=== PATIENT | male | born 1985 | race Caucasian/White ===

== ENCOUNTER 2016-05-01 12:27 | Emergency (ER) | payer OTHER ==
[2016-05-01 13:21] VITALS: BP 118/84; PULSE 83; RESP 18; TEMP 97.8
--- NOTE | 2016-05-01 14:16 | ED ---
Upper Extremity HPI - General Chief Complaint: Extremity Injury, Upper Stated Complaint: Shoulder Pain Time Seen by Provider: 05/01/16 13:49 Source: patient Mode of arrival: ambulatory Limitations: no limitations - History of Present Illness Initial Comments: Patient is a 30-year-old male presenting to the with chief complaint of right shoulder pain. Patient reports that he fell on the ice approximately 2 weeks ago. Patient reports decreased range of motion in the right shoulder. He states it's difficult to abduct his right arm. He denies any peripheral paresthesias. He states that he is in no injuries of his shoulders before. He states that he does have some numbness that radiates down to the elbow. He reports that only occurs with certain movements. Patient denies fever, chills, chest pain, shortness of breath, peripheral paresthesias, nausea, vomiting, abdominal pain. - Related Data Home Medications Medication Instructions Recorded Confirmed Gabapentin [Neurontin] 800 mg PO TID 12/21/15 05/01/16 Previous Rx's Medication Instructions Recorded Cyclobenzaprine [Flexeril] 10 mg PO TID #15 tab 05/01/16 Ibuprofen [Motrin] 800 mg PO Q8HR PRN #20 tab 05/01/16 Allergies Allergy/AdvReac Type Severity Reaction Status Date / Time Sulfa (Sulfonamide Allergy Unknown Verified 05/01/16 13:21 Antibiotics) tetanus and diphtheria Allergy Unknown Verified 05/01/16 13:21 toxoids Childhood [Tetanus&Diphtheria Toxoid] tetracycline [Tetracycline] Allergy Unknown Verified 05/01/16 13:21 Review of Systems ROS Statement: Those systems with pertinent positive or pertinent negative responses have been documented in the HPI. ROS Other: All systems not noted in ROS Statement are negative. Past Medical History Additional Past Medical History / Comment(s): left pectal muscle missing, pectus cavernosum dextrocardia situs inversus. History of Any Multi-Drug Resistant Organisms: MRSA Date of last positivie culture/infection: 12/21/15 MDRO Source:: Left Knee Past Surgical History: Orthopedic Surgery Additional Past Surgical History / Comment(s): Right wrist tendon surgery. MEDICAL-dextrocardia situs inversis, pectus excavatom, former heroin abuser 6months clean as of today 07/04/14 Past Psychological History: PTSD Smoking Status: Current every day smoker Past Alcohol Use History: Rare Past Drug Use History: None Reported General Exam - General Exam Comments Initial Comments: Patient is a well-appearing 30-year-old male. He does not appear to be in any acute distress. Limitations: no limitations General appearance: alert, in no apparent distress Head exam: Present: atraumatic, normocephalic, normal inspection Eye exam: Present: normal appearance, PERRL, EOMI. Absent: scleral icterus, conjunctival injection, periorbital swelling ENT exam: Present: normal exam, mucous membranes moist Neck exam: Present: normal inspection. Absent: tenderness, meningismus, lymphadenopathy Respiratory exam: Present: normal lung sounds bilaterally. Absent: respiratory distress, wheezes, rales, rhonchi, stridor Cardiovascular Exam: Present: regular rate, normal rhythm, normal heart sounds. Absent: systolic murmur, diastolic murmur, rubs, gallop, clicks GI/Abdominal exam: Present: soft, normal bowel sounds. Absent: distended, tenderness, guarding, rebound, rigid Right Shoulder Exam: Present: normal inspection, tenderness over AC joint (I'll tenderness over the before meals joint.). Absent: full ROM (Patient has limited abduction. Patient has positive Apley scratch test.), tenderness, swelling, abrasion, laceration, ecchymosis, deformity, crepitus, dislocation Upper Arm exam: Present: normal inspection, full ROM Elbow exam: Present: normal inspection, full ROM Forearm Wrist exam: Present: normal inspection, full ROM Hand Wrist exam: Present: normal inspection, full ROM Back exam: Present: normal inspection Neurological exam: Present: alert, oriented X3, CN II-XII intact Psychiatric exam: Present: normal affect, normal mood Skin exam: Present: warm, dry, intact, normal color. Absent: rash Course Vital Signs 05/01/16 13:18 Temperature 97.8 F Pulse Rate 83 Respiratory 18 Rate Blood Pressure 118/84 O2 Sat by Pulse 96 Oximetry Procedures - Orthopedic Splinting/Casting Injury #1 Side: right Upper Extremity Injury Location: shoulder Upper Extremity Immobilizer: sling/shoulder immobilizer Medical Decision Making - Medical Decision Making Patient is a 28-year-old male with 2 weeks of right shoulder pain and decreased range of motion after falling on the ice. X-rays of the shoulder and before meals joints were obtained. Xrays shown to be negative. Patient given Rx for antiinflammatory and muscle relaxer. PAtient understands treatment plan and will comply. Patietn given sling, and referral to orthopedic. REturn parameters discussed. - Radiology Data Radiology results: report reviewed XR of shoulder and AC joint show no acute abnormality, or dislocation. No evidence of AC separation with weights. Disposition Clinical Impression: Injury of right rotator cuff Disposition: HOME SELF-CARE Condition: Good Instructions: Rotator Cuff Injury (ED) Additional Instructions: instructed to follow-up with orthopedic physician. Patient instructed to be in sling except for sleeping. Return to the [facility] if any alarming signs or symptoms occur. Prescriptions: Cyclobenzaprine [Flexeril] 10 mg PO TID #15 tab Ibuprofen [Motrin] 800 mg PO Q8HR PRN #20 tab PRN Reason: Pain Referrals: Raymon Henning DO [Primary Care Provider] - 1-2 days Kishore Hutchinson MD [STAFF PHYSICIAN] - 1-2 days Time of Disposition: 14:55
--- NOTE | 2016-05-01 14:43 | XR ---
EXAMINATION TYPE: XR shoulder complete RT DATE OF EXAM: 05/01/2016 2:27 PM COMPARISON: NONE HISTORY: Pain post fall The osseous structures are intact. There is no acute fracture or dislocation. The AC joint is maint ained. IMPRESSION: 1. No acute process.
--- NOTE | 2016-05-01 14:44 | XR ---
EXAMINATION TYPE: XR AC joint BILAT DATE OF EXAM: 05/01/2016 2:28 PM COMPARISON: NONE History: Pain FINDINGS: AC joints are symmetric. Distance is within normal limits. There is no evidence of elevatio n of the clavicle. Chronic deformity involving the left clavicle noted. IMPRESSION: 1. No acute fracture or dislocation.
== END 2016-05-01 15:01 | disposition home or self-care (01) ==
LOC: EC 12:27
DX: S46.001A Unspecified injury of muscle(s) and tendon(s) of the rotator cuff of right shoulder, initial encounter (principal); F17.200 Nicotine dependence, unspecified, uncomplicated; Z86.14 Personal history of Methicillin resistant Staphylococcus aureus infection; Z79.899 Other long term (current) drug therapy; Z88.2 Allergy status to sulfonamides; Z88.1 Allergy status to other antibiotic agents; Z88.7 Allergy status to serum and vaccine; Z98.890 Other specified postprocedural states; W00.0XXA Fall on same level due to ice and snow, initial encounter
CPT/HCPCS: 73050; 99283

== ENCOUNTER 2016-05-11 00:37 | Emergency (ER) | payer OTHER ==
[2016-05-11 00:40] VITALS: TEMP 97.8
--- NOTE | 2016-05-11 00:45 | ED ---
Overdose HPI - General Chief Complaint: Overdose Stated Complaint: Drug Overdose Time Seen by Provider: 05/11/16 00:41 Source: patient, EMS, RN notes reviewed Mode of arrival: EMS Limitations: no limitations - History of Present Illness Initial Comments: 30-year-old male presented to emergency department via EMS for opiate overdose. Patient was found to be unresponsive by family notes that child throwing water on them. Patient was given 2 Narcan IM in which she aroused. Patient states it is very cold at this time. Patient states she does have a history of drug abuse no she's experimented with multiple drugs. Patient states she's been under control for over a year but states that he may have used some pain tonight area patient is not very forthcoming of his incident tonight. Patient denies any headache, dizziness, chest pain, nausea vomiting at this time. Patient does have a history of pectus cavernosus and dextrocardia situs inversus - Related Data Home Medications Medication Instructions Recorded Confirmed Gabapentin [Neurontin] 800 mg PO TID 12/21/15 05/01/16 Previous Rx's Medication Instructions Recorded Cyclobenzaprine [Flexeril] 10 mg PO TID #15 tab 05/01/16 Ibuprofen [Motrin] 800 mg PO Q8HR PRN #20 tab 05/01/16 Allergies Allergy/AdvReac Type Severity Reaction Status Date / Time Sulfa (Sulfonamide Allergy Unknown Verified 05/11/16 00:41 Antibiotics) tetanus and diphtheria Allergy Unknown Verified 05/11/16 00:41 toxoids Childhood [Tetanus&Diphtheria Toxoid] tetracycline [Tetracycline] Allergy Unknown Verified 05/11/16 00:41 Review of Systems ROS Statement: Those systems with pertinent positive or pertinent negative responses have been documented in the HPI. ROS Other: All systems not noted in ROS Statement are negative. Past Medical History Past Medical History: No Reported History Additional Past Medical History / Comment(s): left pectal muscle missing, pectus cavernosum dextrocardia situs inversus. History of Any Multi-Drug Resistant Organisms: MRSA Date of last positivie culture/infection: 12/21/15 MDRO Source:: Left Knee Past Surgical History: Orthopedic Surgery Additional Past Surgical History / Comment(s): Right wrist tendon surgery. MEDICAL-dextrocardia situs inversis, pectus excavatom, former heroin abuser 6months clean as of today 07/04/14 Past Psychological History: PTSD Smoking Status: Current every day smoker Past Alcohol Use History: Rare Past Drug Use History: None Reported, Heroin General Exam Limitations: no limitations General appearance: alert, in no apparent distress Head exam: Present: atraumatic, normocephalic, normal inspection Eye exam: Present: normal appearance, PERRL, EOMI. Absent: scleral icterus, conjunctival injection, periorbital swelling ENT exam: Present: normal exam, normal oropharynx, mucous membranes moist, TM's normal bilaterally, normal external ear exam Neck exam: Present: normal inspection, full ROM. Absent: tenderness, meningismus, lymphadenopathy Respiratory exam: Present: normal lung sounds bilaterally, other (Patient has collapsing of his pectus region). Absent: respiratory distress, wheezes, rales , rhonchi, stridor Cardiovascular Exam: Present: regular rate, normal rhythm, normal heart sounds. Absent: systolic murmur, diastolic murmur, rubs, gallop, clicks GI/Abdominal exam: Present: soft, normal bowel sounds. Absent: distended, tenderness, guarding, rebound, rigid Neurological exam: Present: alert, oriented X3, CN II-XII intact Course Vital Signs 05/11/16 00:38 Temperature 97.8 F Pulse Rate 111 H Respiratory 20 Rate Blood Pressure 138/95 O2 Sat by Pulse 97 Oximetry Medical Decision Making - Medical Decision Making 30-year-old male presented emergency department via EMS for heroin overdose. Patient has been awake and alert for over one hour after Narcan given. Patient be discharged at this time. Disposition Clinical Impression: Heroin overdose Disposition: HOME SELF-CARE Condition: Stable Instructions: Narcotic Abuse (ED) Additional Instructions: Please return to the Emergency Department if symptoms worsen or any other concerns. Time of Disposition: 01:19
[2016-05-11 01:51] VITALS: BP 136/85; PULSE 98; RESP 18
== END 2016-05-11 01:51 | disposition home or self-care (01) ==
LOC: EC 00:37
DX: T40.1X1A Poisoning by heroin, accidental (unintentional), initial encounter (principal); F17.200 Nicotine dependence, unspecified, uncomplicated; Z79.899 Other long term (current) drug therapy; Z88.2 Allergy status to sulfonamides; Z88.7 Allergy status to serum and vaccine; Z88.1 Allergy status to other antibiotic agents
CPT/HCPCS: 99284

== ENCOUNTER → 2016-11-24 | Outpatient (CLI) | payer OTHER ==
--- NOTE | 2016-11-27 09:52 | ECHOF ---
Referral Reason:R007.9 chest pain MEASUREMENTS -------- HEIGHT: 170.2 cm WEIGHT: 65.3 kg BP: 140/80 RVIDd: 1.8 cm (< 3.3) IVSd: 1.2 cm (0.6 - 1.1) LVIDd: 3.0 cm (3.9 - 5.3) LVPWd: 1.2 cm (0.6 - 1.1) IVSs: 1.5 cm LVIDs: 1.9 cm LVPWs: 1.6 cm MV E Eber: 0.69 m/s MV DecT: 189 ms MV A Eber: 0.71 m/s MV E/A Ratio: 0.98 RAP: 5.00 mmHg RVSP: 17.37 mmHg FINDINGS -------- Sinus rhythm. This was a technically difficult study with suboptimal views. Patient has seth diagnosed with dextrocardia situs inversus. Overall left ventricular systolic function is normal with, an EF between 55 - 60 %. The right ventricle is normal in size and function. The left atrial size is normal. The right atrium is normal in size. The aortic valve is trileaflet, and appears structurally normal. No aortic stenosis or regurgitation. The mitral valve leaflets are mildly thickened. There is trace mitral regurgitation. Trace tricuspid regurgitation present. There is no evidence of pulmonary hypertension. The right ventricular systolic pressure, as measured by Doppler, is 17.37mmHg. The pulmonic valve was not well visualized. The aortic root size is normal. Normal inferior vena cava with normal inspiratory collapse consistent with estimated right atrial pressure of 5 mmHg. The pericardium is normal. There is no pericardial effusion. CONCLUSIONS -------- 1. Sinus rhythm. 2. The right ventricular systolic pressure, as measured by Doppler, is 17.37mmHg. 3. The pulmonic valve was not well visualized. 4. The aortic root size is normal. 5. There is no pericardial effusion. 6. This was a technically difficult study with suboptimal views. 7. Patient has seth diagnosed with dextrocardia situs inversus. 8. Overall left ventricular systolic function is normal with, an EF between 55 - 60 %. 9. The aortic valve is trileaflet, and appears structurally normal. No aortic stenosis or regurgitation. 10. The mitral valve leaflets are mildly thickened. 11. There is trace mitral regurgitation. 12. Trace tricuspid regurgitation present. 13. There is no evidence of pulmonary hypertension. CYTOLOGY SUPERVISOR: Delfino Srivastava RDCS
== END ==
LOC: RADECHMAIN 14:50
PROVIDERS: ATTEND Family Medicine
DX: I08.1 Rheumatic disorders of both mitral and tricuspid valves (principal); Q89.3 Situs inversus
CPT/HCPCS: 93306

== ENCOUNTER 2017-02-21 20:16 | Emergency (ER) | payer OTHER ==
[2017-02-21 20:33] VITALS: RESP 20
[2017-02-21] MEDS ORDERED: CLINDAMYCIN 150 MG CAP PO STA (21:20)
--- NOTE | 2017-02-21 21:20 | ED ---
ENT HPI - General Chief complaint: ENT Stated complaint: Ear Pain Time Seen by Provider: 02/21/17 20:49 Source: patient, RN notes reviewed Mode of arrival: ambulatory Limitations: no limitations - History of Present Illness Initial comments: This is a 31-year-old male who presents to the emergency department with chief complaint of left ear inflammation. Patient states that 3 days ago he noticed a small pimple in his left ear. He states that he tried to pop it but no pus was extracted. Patient states that the following day his ear began to swell up. He states he inserted the needle into the swollen area. He reports no contents came out. Patient then states that this morning, he reattempted to aspirate with a "dog syringe" that his mother has. He reports that he was able to extract a full syringe of clear liquid. He states that he has been having a throbbing headache and radiation of pain down left jaw. Denies fever, chills, chest pain, shortness of breath, abdominal pain, nausea or vomiting, constipation or diarrhea, dysuria or hematuria, numbness or tingling, headache or vision changes. - Related Data Home Medications Medication Instructions Recorded Confirmed Gabapentin [Neurontin] 800 mg PO TID 12/21/15 02/21/17 Previous Rx's Medication Instructions Recorded Ciprofloxacin HCl [Cipro] 500 mg PO Q12HR #20 tablet 02/21/17 Clindamycin HCl 300 mg PO Q6HR #40 cap 02/21/17 predniSONE 20 mg PO BID #8 tab 02/21/17 Allergies Allergy/AdvReac Type Severity Reaction Status Date / Time Sulfa (Sulfonamide Allergy Unknown Verified 02/21/17 20:33 Antibiotics) tetanus and diphtheria Allergy Unknown Verified 02/21/17 20:33 toxoids Childhood [Tetanus&Diphtheria Toxoid] tetracycline [Tetracycline] Allergy Unknown Verified 02/21/17 20:33 Review of Systems ROS Statement: Those systems with pertinent positive or pertinent negative responses have been documented in the HPI. ROS Other: All systems not noted in ROS Statement are negative. Past Medical History Past Medical History: No Reported History Additional Past Medical History / Comment(s): left pectal muscle missing, pectus cavernosum dextrocardia situs inversus. History of Any Multi-Drug Resistant Organisms: MRSA Date of last positivie culture/infection: 12/21/15 MDRO Source:: Left Knee Past Surgical History: Orthopedic Surgery Additional Past Surgical History / Comment(s): Right wrist tendon surgery. MEDICAL-dextrocardia situs inversis, pectus excavatom, former heroin abuser 6months clean as of today 07/04/14 Past Psychological History: PTSD Smoking Status: Current every day smoker Past Alcohol Use History: None Reported Past Drug Use History: None Reported General Exam - General Exam Comments Initial Comments: General: Awake and alert, well-developed; in no apparent distress. HEENT: Head atraumatic, normocephalic. Left pinna is erythematous and swollen. Tenderness on palpation. No discharge or drainage noted. There is dried blood evident. Pupils are equal, round and reactive to light. Extraocular movements intact. Oropharynx moist without erythema or exudate. Neck: Supple. Normal ROM. Cardiovascular: Regular rate and rhythm. No murmurs, rubs or gallops. Chest symmetrical. Respiratory: Lungs clear to auscultation bilaterally. No wheezes, rales or rhonchi. Normal respiratory effort with no use of accessory muscles. Musculoskeletal: Normal ROM, no tenderness bilateral upper and lower extremities. Skin: [place], warm and dry without rashes or lesions. Neurological: Alert and oriented x3. CN II-XII grossly intact. Speech is fluent and answers are appropriate. No focal neuro deficits. Psychiatric: Normal mood and affect. No overt signs of depression or anxiety noted. Limitations: no limitations Course Vital Signs 02/21/17 20:31 Temperature 98 F Pulse Rate 123 H Respiratory 20 Rate Blood Pressure 132/98 O2 Sat by Pulse 98 Oximetry Procedures - Incision & Drainage Consent Obtained: verbal consent Indication: hematoma Site: other (pinna of left ear ) Size (cm): 2 Anesthetic Used: lidocaine 1% Amount (mLs): 1 I&D Cleaning Method: Alcohol Wipe Needle Aspiration Performed?: Yes Irrigation Performed?: No I&D Drainage Obtained: Blood Culture Obtained?: No Patient Tolerated Procedure: well, no complications Medical Decision Making - Medical Decision Making This is a 31-year-old male who presents to the emergency department with chief complaint of left ear inflammation. This case was discussed with attending physician, Dr. Peguero who also evaluated patient. I&D was performed and contents consisted of blood. A pressure dressing was placed to inhibit refilling of fluid. Patient tolerated well and is in no acute distress. Patient was strongly advised to follow up with ENT tomorrow morning. He is referred to Dr. Ploo. Patient informed that he is at risk for cauliflower ear if he does not follow-up. while in the emergency department patient was given Cipro, clindamycin and steroids. He will be discharged on these 3 prescriptions as well. Patient is in agreement to the plan and voiced understanding. All questions were answered. Disposition Clinical Impression: Hematoma of left external ear Disposition: HOME SELF-CARE Condition: Good Instructions: Hematoma (ED) Additional Instructions: Please follow up tomorrow morning with Dr. Lynne, ENT. Please take all medications as prescribed. Please keep dressing dry and intact until follow -up tomorrow. Please follow up with primary care provider within 1-2 days. Return to emergency department if symptoms should worsen or any concerns arise. Prescriptions: Ciprofloxacin HCl [Cipro] 500 mg PO Q12HR #20 tablet Clindamycin HCl 300 mg PO Q6HR #40 cap predniSONE 20 mg PO BID #8 tab Referrals: Jordy Marvin MD [Primary Care Provider] - 1-2 days Brody Lynne DO [Doctor of Osteopathic Medicine] - 1-2 days Time of Disposition: 22:00
[2017-02-21] MEDS ORDERED: predniSONE 50 MG TAB PO STA (21:23)
[2017-02-21] MEDS ORDERED: CIPROFLOXACIN HCL 500 MG TAB PO STA (21:23)
[2017-02-21 22:06] VITALS: BP 133/80; PULSE 96; TEMP 98
== END 2017-02-21 22:06 | disposition home or self-care (01) ==
LOC: EC 20:16
DX: H61.122 Hematoma of pinna, left ear (principal); Z86.14 Personal history of Methicillin resistant Staphylococcus aureus infection; F17.200 Nicotine dependence, unspecified, uncomplicated; Z79.899 Other long term (current) drug therapy; Z88.2 Allergy status to sulfonamides; Z88.1 Allergy status to other antibiotic agents; Z88.7 Allergy status to serum and vaccine
CPT/HCPCS: 99282; 69000; J7512